=== PATIENT | male | born 1945 | race Caucasian/White ===

== ENCOUNTER → 2017-03-09 | Outpatient (CLI) | payer OTHER | LOC: MMPC 09:00 | PROVIDERS: ATTEND Nurse Practitioner Family | DX: G47.09 Other insomnia (principal); R09.81 Nasal congestion; I10 Essential (primary) hypertension | CPT/HCPCS: 99213; G0463 ==

== ENCOUNTER 2018-05-13 07:17 | Inpatient (IN) ==
[2018-05-13] MEDS ORDERED: IPRATROPIUM/ALBUTEROL SULFATE 3 ML NEB NEB ONE (07:24)
[2018-05-13] MEDS ORDERED: methylPREDNISolone 125 MG/2 ML VIAL IVP ONE (07:24)
--- NOTE | 2018-05-13 07:29 | EKG ---
[address] [address] Measurements Intervals [place] Rate: 100 P: 43 GA: 164 QRS: 75 QRSD: 119 T: 29 QT: 357 QTc: 414 Interpretive Statements SINUS TACHYCARDIA MODERATE INTRAVENTRICULAR CONDUCTION DELAY ST DEVIATION AND MODERATE T-WAVE ABNORMALITY, CONSIDER ANTERIOR ISCHEMIA Compared to ECG 12/22/2017 05:35:15 Intraventricular conduction delay now present Possible ischemia now present Sinus rhythm no longer present Ventricular premature complex(es) no longer present T-wave abnormality still present Electronically Signed On 05-13-18 16:14:36 MDT by Tapan Banegas [email or web address]
--- NOTE | 2018-05-13 07:51 | PDOC ---
Dyspnea HPI - General Chief Complaint: Dyspnea Stated Complaint: Difficulty Breathing Date Seen by Provider: 05/13/18 Time Seen by Provider: 07:35 Source: POSITIVE: Patient Exam Limitations: POSITIVE: No limitations Treatment Prior to Arrival: REPORTS: None Nurse's Notes Reviewed & Considered: Yes - History of Present Illness Initial Comments: The patient is a 72-year-old male who presents to the emergency department with increased shortness of breath. He does have a history of COPD and congestive heart failure. Over the past several days he has had increase in productive cough and increased shortness of breath. The patient states that he thinks he is breathing fine however his family member wanted him to come to the emergency department. He does not normally wear oxygen at home. Oxygen saturations were in the 50s/60s on room air on arrival. He denies any current chest pain. He has been having some swelling in his legs for several weeks. He did recently have procedure secondary to peripheral vascular disease in his legs. He also does have a history of coronary artery disease. He is taking eliquis. He does not use any nebulizers or rescue inhalers currently. - Patient Home Medications Home Medications: Home Medications Aspirin [Lo-Dose Aspirin Ec] 81 mg PO DAILY 12/20/12 Vitamin E Cap 400 iu PO DAILY 01/22/14 simvastatin 40 mg tablet 40 mg PO DAILY #30 tab 05/22/17 verapamil ER 360 mg 24 hr capsule,extended release 360 mg PO QD cap 05/22/17 losartan 100 mg tablet 100 mg PO QHS #1 tab 01/07/18 losartan 50 mg tablet 50 mg PO QDAY tab 01/07/18 furosemide 40 mg tablet 40 mg PO QAM #30 tab 01/28/18 potassium chloride ER 20 mEq tablet,extended release 20 meq PO QAM #30 tab 01/28 triamterene 37.5 mg-hydrochlorothiazide 25 mg capsule 1 cap PO DAILY #30 cap zolpidem 10 mg tablet 10 mg PO QHS PRN #30 tab 03/04/18 Apixaban [Eliquis] 5 mg PO DAILY 05/13/18 - Patient Allergies Allergies/Adverse Reactions: Allergies 3 Allergy/AdvReac Type Severity Reaction Status Date / Time No Known Allergies Allergy Verified 05/13/18 07:21 Past Medical History - heen HEENT History: Denies History Cardiovascular History: Hypertension, CAD, Hyperlipidemia, Other (please comment ) Additional Cardiovasular History: BYPASS. OCCLUSION RIGHT SUPERFICIAL FEMORAL ARTERY TO POPLITEAL Respiratory History: Asthma, COPD, Emphysema Gastrointestinal History: Denies History Genitourinary History: Denies History Endocrine History: Denies History Musculoskeletal History: Denies History Neurological History: Denies History Blood Disorders: Denies History Psychiatric History: Denies History History of Sexually Transmitted Diseases: No Cancer History: Denies History In Past Year Been Physically Harmed or Verbally Threatened: No History of MDRO: Unknown History of Other Communicable Diseases: No Tobacco Use: Current Every Day Smoker Alcohol Use: None In the Past 12 Months, Have Used or Abuse Any Substance: None Previous Surgical History: Yes Type / Date of Surgery: 5-BIPASS. STENT. AORTIC ANEURYSM X 2 REMOVED Significant Family History: No pertinent family hx Past Medical History Reviewed: Reviewed - No Changes ROS - Limitations ROS Limitations: No Limitations Constitution: DENIES: Fever Cardiovascular: REPORTS: Edema. DENIES: Chest Pain Respiratory: REPORTS: Cough Productive, Shortness Of Breath, Wheezing Neurological: REPORTS: Denies Neuro Symptoms Gastrointestinal: REPORTS: Denies GI Symptoms Genitourinary: REPORTS: Denies Symptoms Eyes: REPORTS: Denies Symptoms ENT: REPORTS: Denies Symptoms Skin: DENIES: Rash Dyspnea Physical Exam - General Appearance General Appearance: REPORTS: Other (The patient is awake, he does appear chronically ill) - HEENT HEENT: POSITIVE: Head Inspection Nml, Eyes Inspection Nml, Ears Inspection Nml, Nose Inspection Nml, Pharynx Inspect. Nml - Neck Neck: REPORTS: Normal Inspection. DENIES: Lymphadenopathy - Respiratory Respiratory: REPORTS: Speaks Full Sentences, Other (Decreased breath sounds bilaterally) - Cardiovascular Cardiovascular: REPORTS: Regular Rate and Rhythm, Heart Sounds Normal - Abdomen Abdomen: Soft: (All Quadrants), Denies Tenderness: (All Quadrants), No Distention: (All Quadrants) - Skin Skin: REPORTS: Intact, No Rash - Extremities Extremity: Normal ROM: (All Extremities), Normal Inspection: (All Extremities) - Neurological / Psychological Neurological: POSITIVE: Other (No focal neurologic deficits) Dyspnea Progress - Results Reviewed by me Xrays/CTs/US Reviewed by me: Yes Discussed with Radiologist: Yes Radiology Findings: Chest x-ray shows increased interstitial markings in the lung bases as well as mass in the right lower lung per radiologist. Lab Results Reviewed by Me: Yes CBC and BMP: 05/13/18 07:56 05/13/18 07:56 Lab Results:: Laboratory Results 3 05/13/18 05/13/18 05/13/18 07:48 07:56 07:56 WBC RBC Hgb Hct MCV MCH MCHC RDW Std Deviation RDW Coeff of Mike Plt Count MPV Immature Gran % (Auto) Neut % (Auto) Lymph % (Auto) Ector % (Auto) Eos % (Auto) Baso % (Auto) Immature Gran # (Auto) Neut # (Auto) Lymph # (Auto) Ector # (Auto) Eos # (Auto) Baso # (Auto) WBC Morphology Comment Plt Morphology Comment RBC Morph Comment D-Dimer VBG pH 7.37 VBG pCO2 46 VBG HCO3 28 H VBG Base Excess 1 Sodium Potassium Chloride Carbon Dioxide Anion Gap BUN Creatinine Estimated GFR BUN/Creatinine Ratio Glucose Calculated Osmolality Lactic Acid Calcium Magnesium 2.3 Total Bilirubin AST ALT Alkaline Phosphatase Troponin I 0.075 H C-Reactive Protein 16.5 H NT-Pro-B Natriuret Pep 6760 H Total Protein Albumin Globulin Albumin/Globulin Ratio 3 05/13/18 05/13/18 05/13/18 07:56 07:56 07:56 WBC 11.96 H RBC 5.83 Hgb 14.4 Hct 47.1 MCV 80.8 MCH 24.7 L MCHC 30.6 L RDW Std Deviation 61.6 H RDW Coeff of Mike 21.6 H Plt Count 182 MPV 9.6 Immature Gran % (Auto) 0.2 Neut % (Auto) 80.1 H Lymph % (Auto) 8.4 L Ector % (Auto) 11.1 Eos % (Auto) 0.1 Baso % (Auto) 0.1 Immature Gran # (Auto) 0.02 Neut # (Auto) 9.58 Lymph # (Auto) 1.01 Ector # (Auto) 1.33 H Eos # (Auto) 0.01 Baso # (Auto) 0.01 WBC Morphology Comment Normal morphology Plt Morphology Comment Normal morphology RBC Morph Comment See comments D-Dimer 0.67 H VBG pH VBG pCO2 VBG HCO3 VBG Base Excess Sodium 138 Potassium 4.6 Chloride 104 Carbon Dioxide 24 Anion Gap 10 BUN 40 H Creatinine 1.6 H Estimated GFR Labor Supervisor BUN/Creatinine Ratio 25.00 H Glucose 150 H Calculated Osmolality 298.0 H Lactic Acid Calcium 9.1 Magnesium Total Bilirubin 1.5 H AST 39 ALT 44 Alkaline Phosphatase 91 Troponin I C-Reactive Protein NT-Pro-B Natriuret Pep Total Protein 7.6 Albumin 4.1 Globulin 3.5 Albumin/Globulin Ratio 1.10 L 3 05/13/18 07:56 WBC RBC Hgb Hct MCV MCH MCHC RDW Std Deviation RDW Coeff of Mike Plt Count MPV Immature Gran % (Auto) Neut % (Auto) Lymph % (Auto) Ector % (Auto) Eos % (Auto) Baso % (Auto) Immature Gran # (Auto) Neut # (Auto) Lymph # (Auto) Ector # (Auto) Eos # (Auto) Baso # (Auto) WBC Morphology Comment Plt Morphology Comment RBC Morph Comment D-Dimer VBG pH VBG pCO2 VBG HCO3 VBG Base Excess Sodium Potassium Chloride Carbon Dioxide Anion Gap BUN Creatinine Estimated GFR BUN/Creatinine Ratio Glucose Calculated Osmolality Lactic Acid 2.1 Calcium Magnesium Total Bilirubin AST ALT Alkaline Phosphatase Troponin I C-Reactive Protein NT-Pro-B Natriuret Pep Total Protein Albumin Globulin Albumin/Globulin Ratio EKG Interpreted/Reviewed By Me:: Yes EKG Interpretation:: POSITIVE: Other (EKG shows sinus tachycardia with a rate of 100, no acute changes otherwise) - Patient's Progress MDM / ED Course: The patient's oxygen saturations were in the low 60s upper 50s on arrival. He was placed on O2 per nasal cannula which did bring his oxygen saturation up into the lower 90s at 4 L. He was given a DuoNeb. Blood cultures and lactate were drawn with IV start. EKG shows sinus tachycardia with a rate of [address] with no obvious acute ST segment or T-wave changes. He did receive Solu-Medrol 125 mg IV for COPD exacerbation. Chest x-ray shows increased interstitial markings in the lung base with mass appearing lesion in the right lower lobe. Blood work reveals a mildly elevated white count. His d-dimer is mildly elevated at 0.69. His creatinine is also elevated at 1.6. BNP is over 6000 and his troponin is mildly elevated at 0.075. The patient appears to have CHF and COPD exacerbation with possible early pneumonia. He did receive Rocephin 2 g IV and Zithromax 500 mg IV. The patient will be admitted per Dr. Loja. The patient is in agreement with this plan. - Consult Counseled: POSITIVE: Patient, RE: Lab Results, RE: Radiology Results, RE: DX Patient Care Time - Estimated PCT Patient Care Time (In Minutes): 30 Vital Signs - Recent Vital Signs Vital Signs: Vital Signs (Last 8 hours) Temp Pulse Pulse Resp BP Pulse Ox 05/13/18 07:36 96 24 05/13/18 07:35 106 H 24 87 05/13/18 07:24 98.1 F 102 H 36 H 113/63 58 - VS Reviewed Vital Signs Reviewed: Yes Discharge Clinical Impression: Congestive heart failure, COPD exacerbation, Pneumonia, Elevated troponin Discharge Disposition: Admit to Inpatient Condition: Fair Follow Up With: BRENDAN WIGGINS [Primary Care Provider] - Date Decision to Admit to Inpatient: 05/13/18 Time Decision to Admit to Inpatient: 08:40
[2018-05-13 07:55] LABS: VENOUS PH 7.37 (7.32-7.42)
[2018-05-13 07:58] LABS: BASOPHILS # (AUTO) 0.01 10*3/UL; BASOPHILS % (AUTO) 0.1 % (0-1); EOSINOPHILS # (AUTO) 0.01 10*3/UL; EOSINOPHILS % (AUTO) 0.1 % (0-8); Hematocrit [HCT] 47.1 % (42.0-52.0); Hemoglobin [HGB] 14.4 g/dL (14.0-18.0); LYMPHOCYTES # (AUTO) 1.01 10*3/uL; MEAN CORPUSCULAR HEMOGLOBIN 24.7 PG (27-31); MEAN CORPUSCULAR HGB CONC 30.6 g/dL (33-37); MEAN CORPUSCULAR VOLUME 80.8 FL (80-90); MEAN PLATELET VOLUME 9.6 FL (7.4-12.2); MONOCYTES # (AUTO) 1.33 10*3/UL (0.3-0.8); MONOCYTES % (AUTO) 11.1 % (5-15); NEUTROPHILS # (AUTO) 9.58 10*3/UL; NEUTROPHILS % (AUTO) 80.1 % (50-80); RED BLOOD COUNT 5.83 10^6/uL (4.70-6.10)
[2018-05-13 08:11] LABS: BLOOD UREA NITROGEN 40 mg/dL (7-22); SERUM ALBUMIN 4.1 g/dL (3.5-4.8)
--- NOTE | 2018-05-13 08:15 | DI ---
XR CXR 1VW,05/13/2018 7:25 AM: Clinical History: Shortness of breath Previous Exam: None at this facility. Findings: A single frontal radiograph of the chest is obtained, and demonstrates mild increased interstitial ma rkings within the lung bases. Postsurgical changes are seen consistent with coronary artery disease and prior CABG. There is no infiltrate nor effusion at this time. Mild degenerative changes of the acromioclavicular joints are seen. Impression: Increased interstitial markings most consistent with early congestion, RLL mass or reactive airways d isease.
[2018-05-13 08:22] LABS: PLATELET MORPHOLOGY COMMENT NORMAL MORPHOLOGY (NORM); WBC MORPHOLOGY COMMENT NORMAL MORPHOLOGY (NORM)
[2018-05-13 08:23] LABS: RBC MORPHOLOGY COMMENT SEE COMMENTS (NORM)
[2018-05-13] MEDS ORDERED: cefTRIAXone Inj 2 GM in Sodium Chloride 0.9% 100 ML IV ONE (08:36)
[2018-05-13] MEDS ORDERED: ZOLPIDEM 10 MG TABLET PO PRN (09:35)
[2018-05-13] MEDS ORDERED: Simvastatin Tab 40 MG TAB PO SCH ×2 (09:35→21:00)
[2018-05-13] MEDS ORDERED: VERAPAMIL HCL 360 MG PO SCH ×2 (09:35→14:00)
[2018-05-13] MEDS ORDERED: ASPIRIN EC 81 MG TABLET PO SCH (09:35)
[2018-05-13] MEDS ORDERED: LIDOCAINE W/ SODIUM BICARB 0.5 ML SYR SUBD PRN (09:35)
[2018-05-13] MEDS ORDERED: Sodium Chloride 0.9% 1,000 ML IV SCH (09:35)
[2018-05-13] MEDS ORDERED: Apixaban 5 MG TABLET PO SCH ×2 (09:35→21:00)
[2018-05-13] MEDS ORDERED: LIDOCAINE HCL 2 % 10 ML JELLY URO-JECT TOPICAL PRN (09:35)
[2018-05-13 11:19] VITALS: O2SAT 93
--- NOTE | 2018-05-13 13:11 | DCSUMMARY ---
Hospitalization Summary Hospital Course: Final Discharge Diagnosis: Current Visit Problems Problem Status Onset Code COPD exacerbation Acute J44.1 Pneumonia Acute J18.9 Elevated troponin Acute R74.8 Congestive heart failure Chronic I50.9 Diagnostic Data, Laboratory Data, and Procedures of Signifigance: Laboratory Results 05/13/18 05/13/18 05/13/18 Range/Units 07:25 07:25 07:48 WBC (4.8-10.8) 10^3/uL RBC (4.70-6.10) 10^6/uL Hgb (14.0-18.0) g/dL Hct (42.0-52.0) % MCV (80-90) FL MCH (27-31) PG MCHC (33-37) g/dL RDW Std Deviation (39-50) fL RDW Coeff of Mike (11.5-14.5) % Plt Count (140-350) 10*3/uL MPV (7.4-12.2) FL Immature Gran % (Auto) (0-5) % Neut % (Auto) (50-80) % Lymph % (Auto) (10-50) % Lyon % (Auto) (5-15) % Eos % (Auto) (0-8) % Baso % (Auto) (0-1) % Immature Gran # (Auto) 10*3/UL Neut # (Auto) 10*3/UL Lymph # (Auto) 10*3/uL Lyon # (Auto) (0.3-0.8) 10*3/UL Eos # (Auto) 10*3/UL Baso # (Auto) 10*3/UL WBC Morphology Comment (NORM) Plt Morphology Comment (NORM) RBC Morph Comment (NORM) D-Dimer (0.00-0.59) mg/L VBG pH 7.37 (7.32-7.42) VBG pCO2 46 (45-55) mmHg VBG HCO3 28 H (22-26) mmol/L VBG Base Excess 1 (-2-2) MMOL/L Sodium (135-145) meq/L Potassium (3.8-5.2) meq/L Chloride (98-112) meq/L Carbon Dioxide (23-33) meq/L Anion Gap (5-20) BUN (7-22) mg/dL Creatinine (0.70-1.50) mg/dL Estimated GFR BUN/Creatinine Ratio (6-20) Glucose (78-110) mg/dL Calculated Osmolality (267-292) mOsm/kg Lactic Acid (0.70-2.10) MMOL/L Calcium (8.7-10.7) mg/dL Magnesium 2.2 (1.6-2.4) mg/dL Total Bilirubin (0.3-1.2) mg/dL AST (21-57) IU/L ALT (21-72) IU/L Alkaline Phosphatase (38-126) IU/L Troponin I 0.076 H (< 0.040) ng/mL C-Reactive Protein (0.0-0.9) mg/dL NT-Pro-B Natriuret Pep (0-125) PG/ML Total Protein (6.1-8.0) g/dL Albumin (3.5-4.8) g/dL Globulin (2.50-4.10) g/dL Albumin/Globulin Ratio (1.3-2.0) mg/g 05/13/18 05/13/18 05/13/18 Range/Units 07:56 07:56 07:56 WBC 11.96 H (4.8-10.8) 10^3/uL RBC 5.83 (4.70-6.10) 10^6/uL Hgb 14.4 (14.0-18.0) g/dL Hct 47.1 (42.0-52.0) % MCV 80.8 (80-90) FL MCH 24.7 L (27-31) PG MCHC 30.6 L (33-37) g/dL RDW Std Deviation 61.6 H (39-50) fL RDW Coeff of Mike 21.6 H (11.5-14.5) % Plt Count 182 (140-350) 10*3/uL MPV 9.6 (7.4-12.2) FL Immature Gran % (Auto) 0.2 (0-5) % Neut % (Auto) 80.1 H (50-80) % Lymph % (Auto) 8.4 L (10-50) % Lyon % (Auto) 11.1 (5-15) % Eos % (Auto) 0.1 (0-8) % Baso % (Auto) 0.1 (0-1) % Immature Gran # (Auto) 0.02 10*3/UL Neut # (Auto) 9.58 10*3/UL Lymph # (Auto) 1.01 10*3/uL Lyon # (Auto) 1.33 H (0.3-0.8) 10*3/UL Eos # (Auto) 0.01 10*3/UL Baso # (Auto) 0.01 10*3/UL WBC Morphology Comment Normal morphology (NORM) Plt Morphology Comment Normal morphology (NORM) RBC Morph Comment See comments (NORM) D-Dimer (0.00-0.59) mg/L VBG pH (7.32-7.42) VBG pCO2 (45-55) mmHg VBG HCO3 (22-26) mmol/L VBG Base Excess (-2-2) MMOL/L Sodium (135-145) meq/L Potassium (3.8-5.2) meq/L Chloride (98-112) meq/L Carbon Dioxide (23-33) meq/L Anion Gap (5-20) BUN (7-22) mg/dL Creatinine (0.70-1.50) mg/dL Estimated GFR BUN/Creatinine Ratio (6-20) Glucose (78-110) mg/dL Calculated Osmolality (267-292) mOsm/kg Lactic Acid (0.70-2.10) MMOL/L Calcium (8.7-10.7) mg/dL Magnesium 2.3 (1.6-2.4) mg/dL Total Bilirubin (0.3-1.2) mg/dL AST (21-57) IU/L ALT (21-72) IU/L Alkaline Phosphatase (38-126) IU/L Troponin I 0.075 H (< 0.040) ng/mL C-Reactive Protein 16.5 H (0.0-0.9) mg/dL NT-Pro-B Natriuret Pep 6760 H (0-125) PG/ML Total Protein (6.1-8.0) g/dL Albumin (3.5-4.8) g/dL Globulin (2.50-4.10) g/dL Albumin/Globulin Ratio (1.3-2.0) mg/g 05/13/18 05/13/18 05/13/18 Range/Units 07:56 07:56 07:56 WBC (4.8-10.8) 10^3/uL RBC (4.70-6.10) 10^6/uL Hgb (14.0-18.0) g/dL Hct (42.0-52.0) % MCV (80-90) FL MCH (27-31) PG MCHC (33-37) g/dL RDW Std Deviation (39-50) fL RDW Coeff of Mike (11.5-14.5) % Plt Count (140-350) 10*3/uL MPV (7.4-12.2) FL Immature Gran % (Auto) (0-5) % Neut % (Auto) (50-80) % Lymph % (Auto) (10-50) % Lyon % (Auto) (5-15) % Eos % (Auto) (0-8) % Baso % (Auto) (0-1) % Immature Gran # (Auto) 10*3/UL Neut # (Auto) 10*3/UL Lymph # (Auto) 10*3/uL Lyon # (Auto) (0.3-0.8) 10*3/UL Eos # (Auto) 10*3/UL Baso # (Auto) 10*3/UL WBC Morphology Comment (NORM) Plt Morphology Comment (NORM) RBC Morph Comment (NORM) D-Dimer 0.67 H (0.00-0.59) mg/L VBG pH (7.32-7.42) VBG pCO2 (45-55) mmHg VBG HCO3 (22-26) mmol/L VBG Base Excess (-2-2) MMOL/L Sodium 138 (135-145) meq/L Potassium 4.6 (3.8-5.2) meq/L Chloride 104 (98-112) meq/L Carbon Dioxide 24 (23-33) meq/L Anion Gap 10 (5-20) BUN 40 H (7-22) mg/dL Creatinine 1.6 H (0.70-1.50) mg/dL Estimated GFR Life Management Teacher BUN/Creatinine Ratio 25.00 H (6-20) Glucose 150 H (78-110) mg/dL Calculated Osmolality 298.0 H (267-292) mOsm/kg Lactic Acid 2.1 (0.70-2.10) MMOL/L Calcium 9.1 (8.7-10.7) mg/dL Magnesium (1.6-2.4) mg/dL Total Bilirubin 1.5 H (0.3-1.2) mg/dL AST 39 (21-57) IU/L ALT 44 (21-72) IU/L Alkaline Phosphatase 91 (38-126) IU/L Troponin I (< 0.040) ng/mL C-Reactive Protein (0.0-0.9) mg/dL NT-Pro-B Natriuret Pep (0-125) PG/ML Total Protein 7.6 (6.1-8.0) g/dL Albumin 4.1 (3.5-4.8) g/dL Globulin 3.5 (2.50-4.10) g/dL Albumin/Globulin Ratio 1.10 L (1.3-2.0) mg/g History and Physical pertinent to Admission: Course of Hospitalization: This is a very nice 72-year-old gentleman with past medical history significant for coronary artery disease and 4 vessel bypass surgery as well as lower extremity circulatory problems seen by Dr. Reyes. He's had increased shortness of breath cough and lower extremity swelling and now was brought in by his he does have positive troponins and elevated BNP and acute renal failure with a BUN of 40 and creatinine 1.6 considering his extensive history of coronary artery disease and 4 vessel bypass and after visiting with the patient and his which she is Dr. ellington in [place] [facility] and after discussing the case with Dr.fluture Dr. ellington partner it was recommended by cardiology for transfer to [facility] for further workup of his acute congestive heart failure and possible ischemic heart disease and renal failure with nephrology and patient and family agrees he was graciously accepted the by cardiology group in [place] Dr. Dexter he is on L a course for the peripheral vascular disease and recently had a procedure by Dr. Reyes. Of note patient appears very depressed since he retired from his job at [employer] in [place] which she held for 24 years I had the counselor speak with him this morning. - Patient Home Medications Patient looks very depressed I had a counselor speak with him as well Heart: [Regular rate and rhythm, no murmurs, clicks, gallops, or rubs] Lungs: [Clear to auscultation bilaterally, breathing is nonlabored] Abdomen/GI: [Normal tones on auscultation, soft, nontender, nondistended] Musculoskeletal/extremities: [No clubbing, cyanosis, +3 edema] Vitals reviewed and are listed below Vital Signs (24 hrs) Temp Pulse Pulse Pulse Resp BP BP 05/13/18 11:00 79 05/13/18 10:42 97.8 F 91 24 102/58 05/13/18 09:51 98.2 F 83 34 H 96/55 05/13/18 07:36 96 24 05/13/18 07:35 106 H 24 05/13/18 07:24 98.1 F 102 H 36 H 113/63 Pulse Ox 05/13/18 11:00 93 05/13/18 10:42 90 05/13/18 09:51 91 05/13/18 07:36 05/13/18 07:35 87 05/13/18 07:24 58 Assessment and Plan: 1. As per discharge assessments above 2. Disposition: Transferred to [facility] [place] at the recommendation of cardiology and family 3. Condition on discharge, stable and improved. 4. Diet: regular diet 5. Activities: resume normal activities 6. Follow-Up: 1. [PCP] 2. 7. Medications at the Time of Discharge: Home Medications 3 Medication Instructions Recorded Confirmed Type Aspirin [Lo-Dose Aspirin Ec] 81 mg PO DAILY 12/20/12 05/13/18 History Vitamin E Cap 400 iu PO DAILY 01/22/14 05/13/18 History simvastatin 40 mg tablet 40 mg PO DAILY #30 tab 05/22/17 05/13/18 History verapamil ER 360 mg 24 hr 360 mg PO QD cap 05/22/17 05/13/18 History capsule,extended release losartan 100 mg tablet 100 mg PO QHS #1 tab 01/07/18 05/13/18 Rx losartan 50 mg tablet 50 mg PO QDAY tab 01/07/18 05/13/18 History furosemide 40 mg tablet 40 mg PO QAM #30 tab 01/28/18 05/13/18 Rx potassium chloride ER 20 mEq 20 meq PO QAM #30 tab 01/28/18 05/13/18 Rx tablet,extended release triamterene 37.5 1 cap PO DAILY #30 cap 03/04/18 05/13/18 Rx mg-hydrochlorothiazide 25 mg capsule zolpidem 10 mg tablet 10 mg PO QHS PRN #30 tab 03/04/18 05/13/18 Rx Apixaban [Eliquis] 5 mg PO DAILY 05/13/18 05/13/18 History 8. Time, care, counseling and coordination of care for this discharge is greater than 30 minutes. Exam - Vitals Vital Signs: Vital Signs Temperature 97.8 F Temperature Source Temporal Artery Scan Pulse Rate [Apical] 91 Pulse Rate [Pulse Oximeter 102 Right] Pulse Rate 79 Respiratory Rate 24 Blood Pressure [Left Arm] 102/58 Blood Pressure 96/55 Pulse Ox 93 Oxygen Flow Rate 6 Oxygen Delivery Method Nasal Cannula Height 6 ft 1 in Weight 258 lb 1.6 oz
--- NOTE | 2018-05-13 13:12 | PDOC ---
HPI - History of Present Illness History of Present Illness: Please see my discharge summary patient admitted and discharged secondary to worsening condition and needing cardiology with positive troponins and acute renal failure Past Medical History Tobacco Use: Current Every Day Smoker In the Past 12 Months, Have Used or Abuse Any of the Following Substance: None Medication / Allergies Home Medications: Home Medications 3 Medication Instructions Recorded Confirmed Type Aspirin [Lo-Dose Aspirin Ec] 81 mg PO DAILY 12/20/12 05/13/18 History Vitamin E Cap 400 iu PO DAILY 01/22/14 05/13/18 History simvastatin 40 mg tablet 40 mg PO DAILY #30 tab 05/22/17 05/13/18 History verapamil ER 360 mg 24 hr 360 mg PO QD cap 05/22/17 05/13/18 History capsule,extended release losartan 100 mg tablet 100 mg PO QHS #1 tab 01/07/18 05/13/18 Rx losartan 50 mg tablet 50 mg PO QDAY tab 01/07/18 05/13/18 History furosemide 40 mg tablet 40 mg PO QAM #30 tab 01/28/18 05/13/18 Rx potassium chloride ER 20 mEq 20 meq PO QAM #30 tab 01/28/18 05/13/18 Rx tablet,extended release triamterene 37.5 1 cap PO DAILY #30 cap 03/04/18 05/13/18 Rx mg-hydrochlorothiazide 25 mg capsule zolpidem 10 mg tablet 10 mg PO QHS PRN #30 tab 03/04/18 05/13/18 Rx Apixaban [Eliquis] 5 mg PO DAILY 05/13/18 05/13/18 History Allergies/Adverse Reactions: Allergies 3 Allergy/AdvReac Type Severity Reaction Status Date / Time No Known Allergies Allergy Verified 05/13/18 07:21 Exam - Vitals Vital Signs: Vital Signs Temperature 97.8 F Temperature Source Temporal Artery Scan Pulse Rate [Apical] 91 Pulse Rate [Pulse Oximeter 102 Right] Pulse Rate 79 Respiratory Rate 24 Blood Pressure [Left Arm] 102/58 Blood Pressure 96/55 Pulse Ox 93 Oxygen Flow Rate 6 Oxygen Delivery Method Nasal Cannula Height 6 ft 1 in Weight 258 lb 1.6 oz Results - Labs CBC and BMP: 05/13/18 07:56 05/13/18 07:56
[2018-05-13 13:14] VITALS: BP 106/62; RESP 22; TEMP 97
== END 2018-05-13 14:17 | disposition short-term general hospital (02) | DRG 190 ==
LOC: ER 07:17 → MED/SURG 09:35
PROVIDERS: ADMIT Internal Medicine; ATTEND Internal Medicine